=== PATIENT | male | born 1985 | race Caucasian/White ===

== ENCOUNTER 2024-06-25 10:01 | Emergency (ER) | payer OTHER, SELFPAY ==
[2024-06-25 10:12] VITALS: BP 160/100; PULSE 99; RESP 20; TEMP 36.7; O2SAT 97
--- NOTE | 2024-06-25 10:32 | ED.GENADULT ---
HPI - General Adult General Date Seen: 06/25/24 Chief complaint: Headache/Migraine Stated complaint: headache (abnormal) Time Seen by Provider: 06/25/24 10:29 History of Present Illness HPI narrative: 39-year-old male presenting to the ER for headache. Per nurse triage note he has been having pain above his left adventist and left ear for a couple of months. It comes and goes but has been there every day. No head injury. No fever. No recent illness. He has been taking ibuprofen which helps. No other symptoms. No change in his vision. No hearing changes. No nausea vomiting. No dizziness. Patient has a friend diagnosed with a brain tumor 3 days ago so he came to the ER today because of his headache. He is a former drinker, but does not consider himself to be an alcoholic fall. He said he had been drinking about fiber 6 beers per day several days per week. About 5 or 6 weeks ago he just decided on his own that he was drinking too much so he stopped drinking 4 on his own. He did not require therapy. He has not had any alcohol consumption since then. He did not go through any symptoms of alcohol withdrawal at that time. has been sober for 25 days. His left temporal parietal headache started a few weeks for he stop drinking. He did not have any injuries or falls. He had never drunk to the point of unconsciousness and does not think he could have fallen while intoxicated. He does not know of any liver disease from drinking. No diagnosis of cirrhosis. He has had this headache that is just above and anterior to his left ear in the left temporal right region for the past few weeks. Most of the time it is very dull. Occasionally gets worse. There is no clear pattern of exacerbating or alleviating pattern or symptoms. No other symptoms with the headache. No blurry vision. No double vision. No loss of vision. No trouble hearing. No ringing in his ears. No fever. No bruising. No rash. No neck pain. No numbness or tingling in his arms or legs. No sore throat, stuffy nose, cough, fever. No nausea or vomiting or diarrhea. He came to the ER today because he just found out 3 days ago that a high school friend was diagnosed with a brain tumor. Related Data Home Medications ?Medication ?Instructions ?Recorded ?Confirmed No Known Home Medications 06/25/24 06/25/24 Allergies Allergy/AdvReac Type Severity Reaction Status Date / Time No Known Drug Allergies Allergy Verified 06/25/24 10:16 [facility] Social History Smoking Status: Never smoker How often do you have a drink containing alcohol: never AUDIT-C Alcohol total score: 0 Non-prescribed substance use: denies use service: No Exam Narrative: Exam Narrative: Constitutional: Appears well-developed and well-nourished. Alert. Conversant. Non toxic. HENT: Head: Atraumatic. Exam head Nose: Nose normal. TMs and canals and mastoids are normal bilaterally. He does have 2 small erythematous macules on the skin just posterior to his left here. No blisters. No other blistering rash on the scalp. No clear shingles. Mouth/Throat: Oral mucosa is clear and moist. no trismus. Pharynx normal. Tonsils symmetric. No tonsillar enlargement, erythema, or exudate. Eyes: Conjunctivae normal. EOM normal. Pupils equal, round, and reactive to light. No scleral icterus. Neck: Normal range of motion. Neck supple. No tracheal deviation present. Cardiovascular: Normal rate, regular rhythm. No gallop. No friction rub. No murmur heard. Symmetric radial artery pulses Pulmonary/Chest: Effort normal. No stridor. No respiratory distress. No wheezes. No rales. No rhonchi . No tenderness. Abdominal: Soft. Bowel sounds normal. No distension. No mass. No tenderness. No rebound. No guarding. Musculoskeletal: RUE: Normal range of motion. No tenderness. No deformity LUE: Normal range of motion. No tenderness. No deformity RLE: Normal range of motion. No edema. No tenderness. No deformity LLE: Normal range of motion. No edema. No tenderness. No deformity Lymph: No cervical adenopathy. Mental status normal. Attention normal. Alert and oriented x3. GCS 15. Memory normal. Speech fluent. Cognition normal. Cranial Nerves intact II-XII except I did not formally test gag or visual acuity. EOMI. Palate elevates symmetrically and tongue protrudes in the midline. Strength: 5/5 trapezius on the right and left 5/5 deltoid on the right and left 5/5 biceps on the right and left 5/5 triceps on the right and left 5/5 recovery operator on the right and left 5/5 thumb opposition on the right and left 5/5 finger abduction on the right and left 5/5 hip flexors (L3) on the right and left 5/5 quadriceps (L4) on the right and left 5/5 tibialis anterior on the right and left 5/5 EHL (L5) on the right and left 5/5 gastrocnemius (S1) on the right and left 5/5 hamstring on the right and left Sensation intact to light touch in both upper extremities (C4-T1) Sensation intact to light touch in Both lower extremities (L4-S1). Finger to nose and coordination normal. Gait normal. Skin: Skin is warm and dry. No rash noted. No pallor. Normal capillary refill. Psychiatric: Normal mood. Normal affect. Const: Vital Signs, click to edit/add: Vital Signs - 24 hr 06/25/24 10:12 06/25/24 12:08 Temperature 98.1 F 98.7 F Pulse Rate [Pulse Oximeter] 99 73 Respiratory Rate 20 18 Blood Pressure [Ri ght Upper Arm] 160/100 H 137/100 H Pulse Oximetry 97 97 Oxygen Delivery Me thod Room Air Room Air Course Vital Signs Vital signs: Initial Vital Signs Temperature 98.1 F 06/25/24 10:12 Temperature Source Temporal Artery Scan 06/25/24 10:12 Pulse Rate 99 06/25/24 10:12 Respiratory Rate 20 06/25/24 10:12 Blood Pressure 160/100 H 06/25/24 10:12 Blood Pressure Mean 120 H 06/25/24 10:12 Blood Pressure Position Sitting 06/25/24 10:12 Pulse Oximetry 97 06/25/24 10:12 Oxygen Delivery Method Room Air 06/25/24 10:12 Vital Signs Temperature 98.1 F 06/25/24 10:12 Pulse Rate 99 06/25/24 10:12 Respiratory Rate 20 06/25/24 10:12 Blood Pressure 160/100 H 06/25/24 10:12 Pulse Oximetry 97 06/25/24 10:12 Oxygen Delivery Method Room Air 06/25/24 10:12 Temperature 98.7 F 06/25/24 12:08 Pulse Rate 73 06/25/24 12:08 Respiratory Rate 18 06/25/24 12:08 Blood Pressure 137/100 H 06/25/24 12:08 Pulse Oximetry 97 06/25/24 12:08 Oxygen Delivery Method Room Air 06/25/24 12:08 Medical Decision Making MDM Narrative Medical decision making narrative: Ths patient presents with a headache affecting his left temporal head that is been there for about the past fiber 6 weeks is. A broad differential diagnosis was considered including tension, migraine, analgesic rebound, occipital neuralgia, etc. Other less common but serious causes considered included meningitis, encephalitis, subarachnoid bleed, stroke, tumor, etc. The patient has no signs of serious headache etiologies at this point. The patient has a friend who was just diagnosed with a brain tumor and he is very worried about that. Although he does not have any clear positional component, or other neurologic symptoms that would strongly suggest a brain tumor, we did decide to go ahead with imaging today. Head CT scan is negative. Also consider possible dissection, growing aneurysm, or other vascular cause so obtain CTA of his head neck. Imaging is normal. Discussed with the patient that MRI would be a bit more sensitive for tiny brain tumors but likely any tumor large enough to cause headache would be visible on CT scan. Patient's questions were answered and he politely declines any pain medication here in the ER. Headache is minimal at this point. Her eye swelled is no associated fever or neck pain to suggest meningitis. Or no history of head trauma no evidence for bleed on his head CT. No visual symptoms to suggest pseudotumor. Supportive outpatient management is indicated. Headache precautions given for home. Lab Data Labs: Lab Results 06/25/24 Range/Units 11:01 WBC 7.10 (4.50-11.00) K/uL RBC 5.69 (4.30-5.90) m/uL Hgb 15.0 (13.5-17.5) gm/dL Hct 46.4 (37.0-53.0) % MCV 82 (80-100) fL MCH 26 (26-34) pg MCHC 32 (32-36) gm/dL RDW Coeff of Wing 13.0 (11.5-15.5) % Plt Count 252 (140-440) K/uL Neut % (Auto) 51.4 (42.0-72.0) % Lymph % (Auto) 38.3 (20-44) % [place] % (Auto) 6.8 (0.0-11.0) % Eos % (Auto) 2.7 (0.0-7.0) % Baso % (Auto) 0.7 (0.0-3.0) % Neut # (Auto) 3.65 (1.7-7.0) K/uL Lymph # (Auto) 2.72 (0.90-2.90) K/uL [place] # (Auto) 0.50 (0.00-0.90) K/UL Eos # (Auto) 0.19 (0.00-0.50) K/uL Baso # (Auto) 0.05 (0.00-0.30) K/uL Abs Immat Gran (auto) 0.01 (0.00-0.30) K/uL Imm/Tot Granulo (auto) 0.1 % Sodium 139 (135-149) mmol/L Potassium 4.4 (3.6-5.1) mmol/L Chloride 104 (96-114) mmol/L Carbon Dioxide 27 (20-32) mmol/L Anion Gap 8 (7-15) mEq/L BUN 20 (5-24) mg/dL Creatinine 1.2 (0.5-1.5) mg/dL Estimated GFR 78 ml/min Glucose 106 (60-115) mg/dL Calcium 9.7 (8.4-10.6) mg/dL Total Bilirubin 0.3 (0.1-1.5) mg/dL AST 26 (12-35) U/L ALT 33 (4-50) U/L Alkaline Phosphatase 70 (40-150) U/L C-Reactive Protein < 0.5 L (0.5-1.0) mg/dL Total Protein 7.7 (6.0-8.3) g/dL Albumin 4.9 (3.3-5.0) g/dL Imaging Data CTA head: Attestation: I have reviewed the pertinent imaging results. Radiologist's impression: IMPRESSION: Patent proximal intracranial vasculature without intracranial aneurysms. CT scan - head: Attestation: I have reviewed the pertinent imaging results. My impression: IMPRESSION: Normal head CT. CTA Neck: Attestation: I have reviewed the pertinent imaging results. Radiologist's impression: IMPRESSION: Patent cervical vasculature. Discharge Plan Discharge Clinical Impression: Headache Instructions: Acute Headache (DC) Additional Instructions: As we discussed your CT scans and lab work looks good today. It cause for her headache is not clear but so far results are reassuring. Monitor your symptoms and if you have worsening symptoms, worsening headache, new trouble with her vision, fever, trouble with hearing, or any problems please come back to the ER right away If her headache is not completely resolved within 1 week, please recheck with your regular doctor or come back to the ER for recheck Prescriptions: No Action No Known Home Medications Follow Up/Referrals: Provider,Not a Local [Primary Care Provider] - Stand Alone Forms: [employer] Info Instructions
--- NOTE | 2024-06-25 10:49 | CRLHL7_ITS ---
For Patients: As a result of the Century Cures Act, medical imaging exams and procedure reports are released immediately into your electronic medical record. You may view this report before your referring provider. If you have questions, please contact your health care provider. CT ANGIOGRAM NECK DATE: 06/25/2024 CLINICAL HISTORY: Patient with left-sided headache. TECHNIQUE: Standard helical CT image acquisition of the neck up to the skull base after bolus intravenous contrast enhancement. 2D and 3D MIP images for post-processing were performed and interpreted on an independent workstation and 3D images were permanently archived. COMPARISON: CT same day. FINDINGS: The origins of the great vessels from the aortic arch are patent. The origin of the right vertebral artery is patent. The origin of the left vertebral artery is patent. The common carotid arteries are patent. There is no stenosis at the origin of the right internal carotid artery. There is no stenosis at the origin of the left internal carotid artery. The rest of the cervical segments of the internal carotid arteries are patent up to the skull base. The right vertebral artery is dominant. The cervical segments of the vertebral arteries are patent up to the skull base. The visualized lung apices are unremarkable. The thyroid gland is unremarkable. The soft tissues of the neck are unremarkable. There are degenerative changes in the cervical spine. IMPRESSION: Patent cervical vasculature. Please note that all CT scans at this facility use dose modulation, iterative reconstruction, and/or weight-based dosing when appropriate to reduce radiation dose to as low as reasonably achievable. Dictated by: Yevgeniy Murrieta MD @ 06/25/2024 11:23:52 (Electronically Signed)
--- NOTE | 2024-06-25 10:49 | CRLHL7_ITS ---
For Patients: As a result of the Cures Act, medical imaging exams and procedure reports are released immediately into your electronic medical record. You may view this report before your referring provider. If you have questions, please contact your health care provider. CT HEAD DATE: 06/25/2024 CLINICAL HISTORY: Patient with headache. TECHNIQUE: Standard CT scanning of the head was performed. COMPARISON: None. FINDINGS: There is no intracranial hemorrhage. The quiñonez matter-white matter differentiation is intact. The size of the ventricular system is normal for age. There is no mass effect or midline shift. The calvarium is unremarkable. The orbits are unremarkable. The paranasal sinuses are unremarkable. The mastoid air cells are unremarkable. The soft tissues are unremarkable. IMPRESSION: Normal head CT. Please note that all CT scans at this facility use dose modulation, iterative reconstruction, and/or weight-based dosing when appropriate to reduce radiation dose to as low as reasonably achievable. Dictated by: Yevgeniy Murrieta MD @ 06/25/2024 11:21:48 (Electronically Signed)
--- NOTE | 2024-06-25 10:50 | CRLHL7_ITS ---
For Patients: As a result of the Century Cures Act, medical imaging exams and procedure reports are released immediately into your electronic medical record. You may view this report before your referring provider. If you have questions, please contact your health care provider. CT ANGIOGRAM HEAD DATE: 06/25/2024 CLINICAL HISTORY: Patient with left-sided headache. TECHNIQUE: Standard helical CT image acquisition through the intracranial circulation following intravenous administration of contrast material with bolus tracking. 2D and 3D MIP images for post-processing were performed and interpreted on an independent workstation and 3D images were permanently archived. COMPARISON: CT same day. FINDINGS: There is no proximal intracranial large vessel occlusion. There is no intracranial aneurysm. The right internal carotid artery is normal. The right middle cerebral artery and its branches are normal. The right anterior cerebral artery and its branches are normal. The left internal carotid artery is normal. The left middle cerebral artery and its branches are normal. The left anterior cerebral artery and its branches are normal. The anterior communicating artery is well visualized and appears normal. The right vertebral artery and PICA are normal. The left vertebral artery and PICA are normal. The right vertebral artery is dominant. The basilar artery is patent and appears normal. The right posterior cerebral artery is normal. The left posterior cerebral artery is normal. The visualized venous structures are patent. IMPRESSION: Patent proximal intracranial vasculature without intracranial aneurysms. Please note that all CT scans at this facility use dose modulation, iterative reconstruction, and/or weight-based dosing when appropriate to reduce radiation dose to as low as reasonably achievable. Dictated by: Yevgeniy Murrieta MD @ 06/25/2024 11:26:27 (Electronically Signed)
[2024-06-25 11:22] LABS: Albumin* 4.9 g/dL (3.3-5.0); Chloride* 104 mmol/L (96-114)
[2024-06-25 11:23] LABS: Potassium* 4.4 mmol/L (3.6-5.1); Sodium* 139 mmol/L (135-149)
[2024-06-25 11:25] LABS: Bilirubin Total* 0.3 mg/dL (0.1-1.5); Creatinine* 1.2 mg/dL (0.5-1.5); Estimated Glomerular Filt Rate 78 ml/min
[2024-06-25 11:26] LABS: Alanine Aminotransferase* 33 U/L (4-50); Alkaline Phosphatase* 70 U/L (40-150); Anion Gap 8 mEq/L (7-15); Aspartate Amino Transferase* 26 U/L (12-35); Basophils Absolute Auto 0.05 K/uL (0.00-0.30); Basophils Percent Auto 0.7 % (0.0-3.0); Blood Urea Nitrogen* 20 mg/dL (5-24); Carbon Dioxide* 27 mmol/L (20-32); Eosinophils Absolute Auto 0.19 K/uL (0.00-0.50); Eosinophils Percent Auto 2.7 % (0.0-7.0); Glucose* 106 mg/dL (60-115); Hematocrit 46.4 % (37.0-53.0); Immature Granulocytes Abs Auto 0.01 K/uL (0.00-0.30); Immature Granulocytes Pct Auto 0.1 %; Lymphocytes Absolute Auto 2.72 K/uL (0.90-2.90); Lymphocytes Percent Auto 38.3 % (20-44); Mean Corpuscular HGB Conc 32 gm/dL (32-36); Mean Corpuscular Hemoglobin 26 pg (26-34); Mean Corpuscular Volume 82 fL (80-100); Monocytes Percent Auto 6.8 % (0.0-11.0); Neutrophils Absolute Auto 3.65 K/uL (1.7-7.0); Neutrophils Percent Auto 51.4 % (42.0-72.0); Platelet Count* 252 K/uL (140-440); Red Blood Count 5.69 m/uL (4.30-5.90); Total Protein* 7.7 g/dL (6.0-8.3)
[2024-06-25 11:27] LABS: Calcium* 9.7 mg/dL (8.4-10.6); Slide Review Reflex No
[2024-06-25 11:51] LABS: C Reactive Protein* < 0.5 mg/dL (0.5-1.0)
[2024-06-25 12:08] VITALS: BP 137/100; PULSE 73; RESP 18; TEMP 37.1; O2SAT 97
[2024-06-25 12:40] LABS: Erythrocyte SedimentationRate* 2 mm/hr (2-15)
== END 2024-06-25 12:18 | disposition home or self-care (01) ==
PROVIDERS: Emergency Provider Emergency Medicine
DX: R51.9 Headache, unspecified (principal)
CPT/HCPCS: 36415; 70450; 70496; 70498; 80053; 85025; 85651; 86140; 99283; 99284; Q9967

== ENCOUNTER 2024-07-23 10:11 | Outpatient (CLI) | payer OTHER, SELFPAY | END 2024-07-23 10:12 | disposition home or self-care (01) | PROVIDERS: Visit Provider Physician Assistant Medical | DX: R53.83 Other fatigue (principal); Z13.220 Encounter for screening for lipoid disorders; Z13.21 Encounter for screening for nutritional disorder; Z13.0 Encounter for screening for diseases of the blood and blood-forming organs and certain disorders involving the immune mechanism; Z13.29 Encounter for screening for other suspected endocrine disorder | CPT/HCPCS: 80061; 82306; 82607; 82728; 84443 ==

== ENCOUNTER 2024-11-18 12:18 | Outpatient (CLI) | payer OTHER, SELFPAY ==
--- NOTE | 2024-11-25 08:14 | W.PM.SLEEP ---
Sleep Study Details Details Interpreting Provider: Dg Date of Sleep Study: 11/18/24 Sleep Study Details: STUDY TYPE:? Home unattended ? BMI:? 30.4 ORDERING PROVIDER:? Dg INDICATION:? Concern for sleep apnea ? SLEEP SUMMARY:? 379 minutes monitored RESPIRATORY SUMMARY:? AHI 22.6, low oxygen 82, 2.4% of study oxygen less than 90%, snoring 100% PERIODIC LIMB MOVEMENTS OF SLEEP:? Not recorded CARDIAC:? Range 44-105, mean 61.8 beats per minute IMPRESSION:? Moderate obstructive sleep apnea RECOMMENDATION: Treatment options include CPAP, dental appliance and/or airway expansion surgery.
== END 2024-11-18 12:19 | disposition home or self-care (01) ==
LOC: SLEEP 12:19
PROVIDERS: PCP Physician Assistant Medical; Visit Provider Otolaryngology
DX: G47.33 Obstructive sleep apnea (adult) (pediatric) (principal)
CPT/HCPCS: 95806